=== PATIENT | male | born 1940 | race Caucasian/White ===

== ENCOUNTER 2019-05-25 12:58 | Outpatient (CLI) | payer MEDICARE, BC, SELFPAY ==
[2019-05-25 15:32] LABS: Vitamin B12 730 pg/mL (232-1245)
[2019-05-25 15:38] LABS: Folate Level 14.7 ng/mL (4.5-32.2)
[2019-05-29 07:47] LABS: Methylmalonic Acid 165 nmol/L (87-318)
== END 2019-05-25 12:59 | disposition home or self-care (01) ==
LOC: LAB 13:03
PROVIDERS: Family Provider Family Medicine; PCP Family Medicine; Visit Provider Specialist
DX: R41.89 Other symptoms and signs involving cognitive functions and awareness (principal); R41.3 Other amnesia; F05 Delirium due to known physiological condition; G31.83 Neurocognitive disorder with Lewy bodies; F02.80 Dementia in other diseases classified elsewhere, unspecified severity, without behavioral disturbance, psychotic disturbance, mood disturbance, and anxiety; Z87.891 Personal history of nicotine dependence; Z86.73 Personal history of transient ischemic attack (TIA), and cerebral infarction without residual deficits
CPT/HCPCS: 36415; 82607; 82746; 83921; 95816; 96116; 99205; 99215

== ENCOUNTER → 2019-08-23 10:24 | Outpatient (BNVA) | payer MEDICARE, BC, SELFPAY | PROVIDERS: Family Provider Family Medicine; PCP Family Medicine; Visit Provider Specialist | DX: G31.83 Neurocognitive disorder with Lewy bodies (principal); F02.80 Dementia in other diseases classified elsewhere, unspecified severity, without behavioral disturbance, psychotic disturbance, mood disturbance, and anxiety; Z87.891 Personal history of nicotine dependence | CPT/HCPCS: 96116; 99214 ==

== ENCOUNTER → 2019-10-23 15:11 | Outpatient (BNVA) | payer MEDICARE, BC, SELFPAY | PROVIDERS: Family Provider Family Medicine; PCP Family Medicine; Visit Provider Specialist | DX: G30.9 Alzheimer's disease, unspecified (principal); G31.83 Neurocognitive disorder with Lewy bodies; F02.80 Dementia in other diseases classified elsewhere, unspecified severity, without behavioral disturbance, psychotic disturbance, mood disturbance, and anxiety | CPT/HCPCS: 99214 ==